=== PATIENT | female | born 1960 | race African-American/Black ===

== ENCOUNTER 2017-01-12 04:49 | Inpatient (IN) | payer BC, MEDICAID ==
[~2017-01-12] VITALS: Ht 177.8 cm; Wt 67.1 kg
[~2017-01-12 04:49] MED LIST: CODE1CAP54 PO; Nortriptyline Hcl PO; TRIA1CAP6 PO
[2017-01-12] MEDS ORDERED: SODIUM CHLORIDE 0.9% 1,000 ML IV ONE (06:59)
[2017-01-12] MEDS ORDERED: ACETAMINOPHEN 325MG TABLET PO ONE (07:15)
[2017-01-12 07:21] LABS: HEMATOCRIT. 35.6 % (36.0-48.0); HEMOGLOBIN. 11.1 g/dL (12.0-16.0); MEAN CORPUSCULAR VOLUME 79.9 fL (81.0-99.0); MEAN PLATELET VOLUME 10.3 fl (7.4-10.4); PLATELET 158 x1000/uL (130-400); RED BLOOD CELL COUNT 4.45 mill/uL (4.2-5.4); RED CELL DISTRIBUTION WIDTH 14.3 % (11.6-14.6)
[2017-01-12 07:25] LABS: PARTIAL THROMBOPLASTIN TIME 28.2 sec (23.4-31.0); PROTHROMBIN TIME 10.6 sec (9.4-11.6)
[2017-01-12 07:30] LABS: CARBON DIOXIDE 31 mEq/L (21-32); CHLORIDE 105 mEq/L (98-107)
[2017-01-12 07:33] LABS: CREATINE KINASE MB FRACTION 2.1 ng/mL (0.5-3.6); TROPONIN I < 0.02 ng/mL (0.00-0.04)
[2017-01-12] MEDS ORDERED: ASPIRIN 325MG EC TABLET PO ONE (08:00)
[2017-01-12] MEDS ORDERED: ONDANSETRON HCL 4MG/2ML VIAL IV PRN (08:45)
[2017-01-12] MEDS ORDERED: ACETAMINOPHEN 325MG TABLET PO PRN (08:45)
[2017-01-12] MEDS ORDERED: DOCUSATE SODIUM 100MG CAPSULE PO PRN (08:45)
[2017-01-12] MEDS ORDERED: CLONIDINE 0.1MG TABLET PO PRN (08:45)
[2017-01-12] MEDS: SODIUM CHLORIDE 0.45% 1,000 ML IV SCH ×2 (09:00→21:22)
[2017-01-12 09:52] LABS: PLATELET ESTIMATE NORMAL
[2017-01-12 11:10] VITALS: BP_SYST 120; BP_SYST 126; BP_SYST 130; BP_DIAS 87; BP_DIAS 90; BP_DIAS 91
[2017-01-12] MEDS ORDERED: QUET25TA PO (11:11)
[2017-01-12] MEDS ORDERED: AMLO5TAB88 PO (11:11)
[2017-01-12 12:00] VITALS: BP 116/62
[2017-01-12] MEDS ORDERED: BUTALBITAL PO PRN (12:45)
[2017-01-12] MEDS ORDERED: QUETIAPINE FUMARATE 25MG TABLET PO SCH (12:45)
[2017-01-12] MEDS ORDERED: CODEINE PO PRN (12:45)
[2017-01-12] MEDS ORDERED: CAFFEIN PO PRN (12:45)
[2017-01-12] MEDS ORDERED: ASA PO PRN (12:45)
[2017-01-12] MEDS: ENOXAPARIN 40MG/0.4ML SYR SUBCUT SCH (13:27)
[2017-01-12] MEDS: HYDROMORPHONE HCL/PF 2MG/ML CPJ IV PRN ×3 (13:28→22:24)
[2017-01-12] MEDS ORDERED: PANT40TA4 PO (13:48)
[2017-01-12] MEDS: DIPHENHYDRAMINE 25MG CAPSULE PO PRN ×2 (14:01→21:21)
[2017-01-12] MEDS: PANTOPRAZOLE 40MG DR TABLET PO SCH (14:17)
[2017-01-12 15:38] LABS: CLARITY URINE CLEAR (CLEAR); COLOR URINE YELLOW (YELLOW); GLUCOSE URINE NEGATIVE (NEGATIVE); KETONES URINE NEGATIVE (NEGATIVE); LEUKOCYTE ESTERASE URINE 2+ (NEGATIVE); NITRITE URINE NEGATIVE (NEGATIVE); OCCULT BLOOD URINE NEGATIVE (NEGATIVE); PROTEIN URINE NEGATIVE (NEGATIVE); SPECIFIC GRAVITY URINE 1.015 (1.005-1.030); UROBILINOGEN URINE 0.2 E.U./dL (0.2-1.0)
[2017-01-12 15:53] LABS: *AMPHETAMINES SCREEN URINE NEGATIVE (NEGATIVE); *BARBITURATES SCREEN URINE PRESUMTIVE POSITIVE (NEGATIVE); *BENZODIAZEPINES SCREEN URINE NEGATIVE (NEGATIVE); *COCAINE SCREEN URINE NEGATIVE (NEGATIVE); CANNABINOID URINE SCREEN NEGATIVE (NEGATIVE); METHADONE URINE SCREEN NEGATIVE (NEGATIVE); OPIATES URINE SCREEN PRESUMTIVE POSITIVE (NEGATIVE); PHENCYCLIDINE URINE SCREEN NEGATIVE (NEGATIVE)
[2017-01-12 16:00] VITALS: BP 128/96
[2017-01-12 20:00] VITALS: BP_SYST 135; BP_SYST 145; BP_SYST 148; BP_DIAS 104; BP_DIAS 94; BP_DIAS 95
[2017-01-13] VITALS (7 sets, daily range): BP systolic 100–144; BP diastolic 75–96
[2017-01-13] MEDS: HYDROMORPHONE HCL/PF 2MG/ML CPJ IV PRN ×3 (05:47→19:57)
[2017-01-13 06:11] LABS: HEMATOCRIT. 32.7 % (36.0-48.0); HEMOGLOBIN. 10.5 g/dL (12.0-16.0); MEAN CORPUSCULAR HEMOGLOBIN 25.4 pg (28.0-32.0); MEAN CORPUSCULAR VOLUME 79.3 fL (81.0-99.0); MEAN PLATELET VOLUME 9.8 fl (7.4-10.4); PLATELET 136 x1000/uL (130-400); RED BLOOD CELL COUNT 4.13 mill/uL (4.2-5.4); RED CELL DISTRIBUTION WIDTH 14.5 % (11.6-14.6)
[2017-01-13 07:29] LABS: CARBON DIOXIDE 29 mEq/L (21-32); CHLORIDE 106 mEq/L (98-107); HDL CHOLESTEROL 81 mg/dL (40-59); LDL CHOLESTEROL 85 mg/dL (5-100)
[2017-01-13] MEDS: DIPHENHYDRAMINE 25MG CAPSULE PO PRN ×3 (08:10→19:56)
[2017-01-13] MEDS: PANTOPRAZOLE 40MG DR TABLET PO SCH (08:10)
[2017-01-13] MEDS: AMLODIPINE 5MG TABLET PO SCH (08:10)
[2017-01-13] MEDS: ENOXAPARIN 40MG/0.4ML SYR SUBCUT SCH (08:11)
[2017-01-13] MEDS ORDERED: TRIAMTERENE/HYDROCHLOROTHIAZIDE 37.5/25MG CAPSULE PO SCH (09:00)
[2017-01-13] MEDS ORDERED: NORTRIPTYLINE HCL 100 MG PO SCH (09:00)
[2017-01-13 10:35] LABS: PLATELET ESTIMATE NORMAL
[2017-01-13] MEDS: SODIUM CHLORIDE 0.45% 1,000 ML IV SCH ×2 (11:27→23:33)
[2017-01-13] MEDS: NORTRIPTYLINE HCL 25MG CAPSULE PO SCH (13:42)
[2017-01-14 04:00] VITALS: BP_SYST 149; BP_SYST 150; BP_SYST 152; BP_DIAS 104; BP_DIAS 97; BP_DIAS 98
[2017-01-14] MEDS: HYDROMORPHONE HCL/PF 2MG/ML CPJ IV PRN (05:50)
[2017-01-14 07:15] LABS: BASOPHILS % 1.4 % (0.0-2.0); EOSINOPHILS % 10.4 % (0.0-5.0); HEMATOCRIT. 38.2 % (36.0-48.0); HEMOGLOBIN. 12.1 g/dL (12.0-16.0); LYMPHOCYTES % 34.9 % (20.0-50.0); MEAN CORPUSCULAR HEMOGLOBIN 25.4 pg (28.0-32.0); MEAN CORPUSCULAR VOLUME 80.1 fL (81.0-99.0); MEAN PLATELET VOLUME 9.8 fl (7.4-10.4); MONOCYTES % 14.2 % (2.0-8.0); NEUTROPHILS % 39.1 % (40.0-76.0); PLATELET 168 x1000/uL (130-400); RED BLOOD CELL COUNT 4.77 mill/uL (4.2-5.4); RED CELL DISTRIBUTION WIDTH 14.5 % (11.6-14.6)
[2017-01-14] MEDS ORDERED: FAMOTIDINE 20MG TABLET PO SCH (07:40)
[2017-01-14 08:16] LABS: CARBON DIOXIDE 32 mEq/L (21-32); CHLORIDE 101 mEq/L (98-107)
[2017-01-14 08:30] VITALS: BP_SYST 131; BP_SYST 139; BP_SYST 144; BP_DIAS 84; BP_DIAS 85; BP_DIAS 92
[2017-01-14] MEDS: ENOXAPARIN 40MG/0.4ML SYR SUBCUT SCH (09:00)
[2017-01-14] MEDS: AMLODIPINE 5MG TABLET PO SCH (09:33)
[2017-01-14] MEDS: NORTRIPTYLINE HCL 25MG CAPSULE PO SCH (09:33)
[2017-01-14 12:00] VITALS: BP 141/94
[2017-01-14 14:55] VITALS: BP 129/90
== END 2017-01-14 15:10 | disposition home or self-care (01) | DRG 74 ==
LOC: ER 06:24 → 7WST 08:46 → EDBEDREQ 08:52 → EDBEDREQTM 08:52 → ENRESERV 09:55
PROVIDERS: ADMIT Internal Medicine Nephrology; ATTEND Internal Medicine Nephrology
DX: G90.8 Other disorders of autonomic nervous system (principal); I10 Essential (primary) hypertension; N39.0 Urinary tract infection, site not specified; E86.9 Volume depletion, unspecified; D64.9 Anemia, unspecified; D50.9 Iron deficiency anemia, unspecified; G43.909 Migraine, unspecified, not intractable, without status migrainosus; D72.819 Decreased white blood cell count, unspecified; K21.9 Gastro-esophageal reflux disease without esophagitis; W18.2XXA Fall in (into) shower or empty bathtub, initial encounter; Z77.098 Contact with and (suspected) exposure to other hazardous, chiefly nonmedicinal, chemicals; Z79.899 Other long term (current) drug therapy; Z88.6 Allergy status to analgesic agent; Z91.013 Allergy to seafood; Z90.49 Acquired absence of other specified parts of digestive tract; Z91.040 Latex allergy status; Z88.0 Allergy status to penicillin; Y93.E1 Activity, personal bathing and showering; Y92.002 Bathroom of unspecified non-institutional (private) residence as the place of occurrence of the external cause; Y99.8 Other external cause status
CPT/HCPCS: 36415; 70450; 70551; 71010; 80048; 80053; 80061; 80305; 81001; 82553; 83690; 83735; 84443; 84484; 85025; 85379; 85610; 85730; 87040; 87086; 93005; 93306; 93880; 96360; 96361; 97161; 99285; J1170; J1650; J7030; Q0163

== ENCOUNTER 2017-05-02 01:15 | Emergency (ER) | payer BC, MEDICAID ==
[~2017-05-02] VITALS: Ht 177.8 cm; Wt 64.0 kg
[~2017-05-02 01:15] MED LIST changes: +AMLO5TAB88 PO; +PANT40TA4 PO; +QUET25TA PO
[2017-05-02] MEDS ORDERED: PREDNISONE 20MG TABLET PO ONE (03:15)
[2017-05-02 03:30] LABS: CLARITY URINE CLOUDY (CLEAR); COLOR URINE YELLOW (YELLOW); KETONES URINE NEGATIVE (NEGATIVE); LEUKOCYTE ESTERASE URINE 3+ (NEGATIVE); NITRITE URINE NEGATIVE (NEGATIVE); OCCULT BLOOD URINE TRACE (NEGATIVE); PROTEIN URINE NEGATIVE (NEGATIVE); SPECIFIC GRAVITY URINE 1.008 (1.005-1.030); UROBILINOGEN URINE 0.2 E.U./dL (0.2-1.0)
[2017-05-02] MEDS ORDERED: KETOROLAC 30MG/ML VIAL IV ONE (05:45)
[2017-05-02 06:04] VITALS: BP 144/96
== END 2017-05-02 06:13 | disposition home or self-care (01) ==
LOC: ER 01:15
DX: R42 Dizziness and giddiness (principal); G89.29 Other chronic pain; R10.32 Left lower quadrant pain; I10 Essential (primary) hypertension; Z90.49 Acquired absence of other specified parts of digestive tract; Z88.6 Allergy status to analgesic agent; Z91.040 Latex allergy status; Z88.0 Allergy status to penicillin; Z91.013 Allergy to seafood
CPT/HCPCS: 74176; 81001; 96374; 99285; J1885; J7512

== ENCOUNTER 2017-05-19 04:59 | Emergency (ER) | payer BC, MEDICAID ==
[~2017-05-19] VITALS: Ht 177.8 cm; Wt 65.0 kg
[2017-05-19 05:22] VITALS: BP 122/84
== END 2017-05-19 08:22 | disposition home or self-care (01) ==
LOC: ER 05:25
DX: J02.9 Acute pharyngitis, unspecified (principal); N39.0 Urinary tract infection, site not specified; G43.909 Migraine, unspecified, not intractable, without status migrainosus; I10 Essential (primary) hypertension; Z88.0 Allergy status to penicillin; Z90.49 Acquired absence of other specified parts of digestive tract; Z91.013 Allergy to seafood; Z91.040 Latex allergy status; Z88.6 Allergy status to analgesic agent
CPT/HCPCS: 99281

== ENCOUNTER 2017-11-15 14:33 | Emergency (ER) | payer BC, MEDICAID ==
[~2017-11-15] VITALS: Ht 162.6 cm; Wt 66.0 kg
[2017-11-15] MEDS ORDERED: MORPHINE SULFATE 4 MG/ML CPJ (NOT FOR IM USE) IV STA (15:41)
[2017-11-15] MEDS ORDERED: ONDANSETRON HCL 4MG/2ML VIAL IV STA (15:41)
[2017-11-15] MEDS ORDERED: SODIUM CHLORIDE 0.9% 1,000 ML IV ONE (15:41)
[2017-11-15] MEDS ORDERED: KETOROLAC 30MG/ML VIAL IV STA (15:41)
[2017-11-15 17:02] LABS: EOSINOPHILS % 6.2 % (0.0-5.0); HEMATOCRIT. 37.6 % (36.0-48.0); HEMOGLOBIN. 11.9 g/dL (12.0-16.0); LYMPHOCYTES % 40.6 % (20.0-50.0); MEAN CORPUSCULAR HEMOGLOBIN 25.7 pg (28.0-32.0); MEAN CORPUSCULAR VOLUME 81.1 fL (81.0-99.0); MEAN PLATELET VOLUME 9.1 fl (7.4-10.4); MONOCYTES % 8.9 % (2.0-8.0); NEUTROPHILS % 43.3 % (40.0-76.0); PLATELET 159 x1000/uL (130-400); RED BLOOD CELL COUNT 4.64 mill/uL (4.2-5.4); RED CELL DISTRIBUTION WIDTH 14.2 % (11.6-14.6)
[2017-11-15 17:07] LABS: CHLORIDE 100 mEq/L (98-107); PROTHROMBIN TIME 10.7 sec (9.4-11.6)
[2017-11-15 17:11] LABS: AMMONIA 42 uMol/L (<32)
[2017-11-15 17:12] LABS: ETHANOL BLOOD < 10 mg/dL
[2017-11-15 17:16] LABS: CREATINE KINASE 113 IU/L (26-192)
[2017-11-15 17:17] LABS: CARBAMAZEPINE < 0.5 ug/mL (4-12); PHENOBARBITAL < 2.1 ug/mL (15.0-40.0); VALPROIC ACID < 3.0 ug/mL (50-100)
[2017-11-15 18:49] VITALS: BP 150/99
[2017-11-15] MEDS ORDERED: SUMATRIPTAN SUCCINATE 25MG TABLET PO ONE (19:00)
[2017-11-15] MEDS ORDERED: METOCLOPRAMIDE HCL 10MG/2ML VIAL IV ONE (19:00)
== END 2017-11-15 19:07 | disposition home or self-care (01) ==
LOC: ER 14:33
DX: R51 Headache (principal); R11.0 Nausea; R68.84 Jaw pain; H53.8 Other visual disturbances
CPT/HCPCS: 36415; 70450; 80053; 80156; 80165; 80184; 80185; 82140; 82550; 84443; 84484; 85025; 85610; 93005; 96361; 96374; 96375; 99285; G0482; J1885; J2270; J2405; J2765; J7030; Z7610; 80305; 81003

== ENCOUNTER 2017-11-18 23:54 | Emergency (ER) | payer BC, MEDICAID ==
[~2017-11-18] VITALS: Ht 177.8 cm; Wt 65.0 kg
[2017-11-19] MEDS ORDERED: SODIUM CHLORIDE 0.9% 1,000 ML IV ONE (00:34)
[2017-11-19] MEDS ORDERED: MORPHINE SULFATE 4 MG/ML CPJ (NOT FOR IM USE) IV STA (00:34)
[2017-11-19] MEDS ORDERED: KETOROLAC 30MG/ML VIAL IV STA (00:34)
[2017-11-19] MEDS ORDERED: METOCLOPRAMIDE HCL 10MG/2ML VIAL IV ONE (00:45)
[2017-11-19] MEDS ORDERED: FENTANYL CITRATE/PF 50MCG/ML 2ML VIAL IV ONE (03:00)
[2017-11-19 03:25] VITALS: BP 144/95
== END 2017-11-19 03:40 | disposition home or self-care (01) ==
LOC: ER 23:54
DX: G43.909 Migraine, unspecified, not intractable, without status migrainosus (principal); G44.89 Other headache syndrome; R11.2 Nausea with vomiting, unspecified; I10 Essential (primary) hypertension; Z90.49 Acquired absence of other specified parts of digestive tract; Z88.0 Allergy status to penicillin; Z91.013 Allergy to seafood; Z88.6 Allergy status to analgesic agent; Z91.040 Latex allergy status; Z79.899 Other long term (current) drug therapy
CPT/HCPCS: 96361; 96374; 96375; 99284; J1885; J2270; J2765; J3010; J7030

== ENCOUNTER 2018-02-09 13:29 | Inpatient (IN) | payer BC, MEDICAID ==
[~2018-02-09] VITALS: Ht 177.8 cm; Wt 69.9 kg
[2018-02-09] MEDS ORDERED: SODIUM CHLORIDE 0.9% 1,000 ML IV ONE (15:39)
[2018-02-09] MEDS ORDERED: ONDANSETRON HCL 4MG/2ML INJ IV STA (15:39)
[2018-02-09] MEDS ORDERED: ACETAMINOPHEN 325MG TABLET PO ONE (15:45)
[2018-02-09 16:05] LABS: BASOPHILS % 1.1 % (0.0-2.0); EOSINOPHILS % 9.3 % (0.0-5.0); HEMATOCRIT. 35.1 % (36.0-48.0); HEMOGLOBIN. 11.2 g/dL (12.0-16.0); LYMPHOCYTES % 50.5 % (20.0-50.0); MEAN CORPUSCULAR HEMOGLOBIN 25.8 pg (28.0-32.0); MEAN CORPUSCULAR VOLUME 80.4 fL (81.0-99.0); MEAN PLATELET VOLUME 10.3 fl (7.4-10.4); MONOCYTES % 13.8 % (2.0-8.0); NEUTROPHILS % 25.3 % (40.0-76.0); PLATELET 199 x1000/uL (130-400); RED BLOOD CELL COUNT 4.36 mill/uL (4.2-5.4); RED CELL DISTRIBUTION WIDTH 14.5 % (11.6-14.6)
[2018-02-09 16:17] LABS: CHLORIDE 106 mEq/L (98-107)
[2018-02-09 16:43] LABS: PROTHROMBIN TIME 10.1 sec (9.1-11.1)
[2018-02-09] MEDS ORDERED: ONDANSETRON 4MG ODT PO ONE (16:45)
[2018-02-09 18:46] LABS: CLARITY URINE CLEAR (CLEAR); COLOR URINE YELLOW (YELLOW); KETONES URINE NEGATIVE (NEGATIVE); LEUKOCYTE ESTERASE URINE 2+ (NEGATIVE); NITRITE URINE NEGATIVE (NEGATIVE); OCCULT BLOOD URINE NEGATIVE (NEGATIVE); PH URINE 5.5 (4.5-8.0); PROTEIN URINE NEGATIVE (NEGATIVE); SPECIFIC GRAVITY URINE 1.013 (1.005-1.030); UROBILINOGEN URINE 0.2 E.U./dL (0.2-1.0)
[2018-02-09] MEDS ORDERED: ACETAMINOPHEN 325MG TABLET PO PRN ×2 (19:15→23:00)
[2018-02-09] MEDS ORDERED: NITROFURANTOIN 100MG M/M CAPSULE PO ONE (20:30)
[2018-02-09 21:00] VITALS: BP_SYST 135; BP_SYST 139; BP_DIAS 93; BP_DIAS 95
[2018-02-09] MEDS ORDERED: SODIUM CHLORIDE 0.45% 1,000 ML IV SCH (22:54)
[2018-02-09] MEDS ORDERED: LORAZEPAM 2MG/ML CPJ IV PRN (23:00)
[2018-02-09] MEDS ORDERED: HYDROCODONE/ACETAMINOPHEN 5/325MG TABLET PO PRN (23:00)
[2018-02-09] MEDS ORDERED: DOCUSATE SODIUM 100MG CAPSULE PO PRN (23:00)
[2018-02-09] MEDS ORDERED: CLONIDINE 0.1MG TABLET PO PRN (23:00)
[2018-02-09] MEDS ORDERED: GUAIFENESIN 200MG/10ML SUGAR FREE UDC PO PRN (23:00)
[2018-02-09] MEDS ORDERED: MAGNESIUM/ALUMINUM HYDROXIDE/SIMETHICONE 30ML UDC PO PRN (23:00)
[2018-02-09] MEDS ORDERED: NA PHOS,M-B/NA PHOS,DI-BA ENEMA 118ML PR PRN (23:00)
[2018-02-09] MEDS ORDERED: IPRATROPIUM/ALBUTEROL 0.5-3(2.5)MG/3ML NEB INH PRN (23:00)
[2018-02-09] MEDS ORDERED: ONDANSETRON HCL 4MG/2ML INJ IV PRN (23:00)
[2018-02-10] VITALS: BP 123/91
[2018-02-10] MEDS: ENOXAPARIN 40MG/0.4ML SYR SUBCUT SCH ×2 (00:02→21:06)
[2018-02-10] MEDS: MORPHINE SULFATE 4 MG/ML CPJ (NOT FOR IM USE) IV PRN ×4 (00:04→21:25)
[2018-02-10] MEDS: DIPHENHYDRAMINE 50MG/ML VIAL IV PRN ×4 (00:52→22:52)
[2018-02-10] MEDS ORDERED: PARO10TA74 PO (02:49)
[2018-02-10] MEDS ORDERED: FLUO15CR34 TP (02:49)
[2018-02-10 04:00] VITALS: BP 156/103
[2018-02-10 06:40] LABS: BASOPHILS % 1.6 % (0.0-2.0); EOSINOPHILS % 9.5 % (0.0-5.0); HEMATOCRIT. 33.9 % (36.0-48.0); HEMOGLOBIN. 10.9 g/dL (12.0-16.0); MEAN CORPUSCULAR HEMOGLOBIN 25.9 pg (28.0-32.0); MEAN CORPUSCULAR VOLUME 80.6 fL (81.0-99.0); MEAN PLATELET VOLUME 9.6 fl (7.4-10.4); MONOCYTES % 13.1 % (2.0-8.0); NEUTROPHILS % 23.8 % (40.0-76.0); PLATELET 194 x1000/uL (130-400); RED BLOOD CELL COUNT 4.21 mill/uL (4.2-5.4); RED CELL DISTRIBUTION WIDTH 14.6 % (11.6-14.6)
[2018-02-10 06:58] LABS: CHLORIDE 106 mEq/L (98-107)
[2018-02-10 07:33] LABS: HDL CHOLESTEROL 86 mg/dL (40-59); LDL CHOLESTEROL 92 mg/dL (5-100); T4 FREE 0.92 ng/dL (0.76-1.46)
[2018-02-10] MEDS: ASPIRIN 81MG EC TABLET PO SCH (08:15)
[2018-02-10 16:16] LABS: CREATINE KINASE MB FRACTION 1.5 ng/mL (0.5-3.6)
[2018-02-10 16:52] LABS: *AMPHETAMINES SCREEN URINE NEGATIVE (NEGATIVE); *BARBITURATES SCREEN URINE PRESUMTIVE POSITIVE (NEGATIVE); *BENZODIAZEPINES SCREEN URINE NEGATIVE (NEGATIVE)
[2018-02-10 16:55] LABS: *COCAINE SCREEN URINE NEGATIVE (NEGATIVE); CANNABINOID URINE SCREEN NEGATIVE (NEGATIVE); METHADONE URINE SCREEN NEGATIVE (NEGATIVE); OPIATES URINE SCREEN PRESUMTIVE POSITIVE (NEGATIVE); PHENCYCLIDINE URINE SCREEN NEGATIVE (NEGATIVE)
[2018-02-10] MEDS: SODIUM CHLORIDE 0.9% 1,000 ML IV SCH ×2 (16:56→22:52)
[2018-02-10 20:00] VITALS: BP_SYST 116; BP_SYST 122; BP_SYST 140; BP_DIAS 50; BP_DIAS 75; BP_DIAS 79
[2018-02-10 20:34] VITALS: BP 122/75
[2018-02-11] VITALS (9 sets, daily range): BP systolic 116–149; BP diastolic 50–100
[2018-02-11 00:17] LABS: CREATINE KINASE MB FRACTION 1.7 ng/mL (0.5-3.6)
[2018-02-11] MEDS: MORPHINE SULFATE 4 MG/ML CPJ (NOT FOR IM USE) IV PRN ×3 (05:57→14:52)
[2018-02-11 07:06] LABS: CREATINE KINASE MB FRACTION 2.4 ng/mL (0.5-3.6)
[2018-02-11] MEDS: ASPIRIN 81MG EC TABLET PO SCH (08:47)
[2018-02-11] MEDS: DIPHENHYDRAMINE 50MG/ML VIAL IV PRN ×4 (08:47→23:20)
[2018-02-11] MEDS: SODIUM CHLORIDE 0.9% 1,000 ML IV SCH (13:11)
[2018-02-11] MEDS: ENOXAPARIN 40MG/0.4ML SYR SUBCUT SCH (21:57)
[2018-02-12] VITALS: BP_SYST 145; BP_SYST 149; BP_DIAS 100; BP_DIAS 78
[2018-02-12] MEDS: SODIUM CHLORIDE 0.9% 1,000 ML IV SCH (02:34)
[2018-02-12 04:00] VITALS: BP_SYST 125; BP_SYST 147; BP_DIAS 84; BP_DIAS 91
[2018-02-12] MEDS: MORPHINE SULFATE 4 MG/ML CPJ (NOT FOR IM USE) IV PRN (04:56)
[2018-02-12 07:41] VITALS: BP 163/93
[2018-02-12 07:44] VITALS: BP 141/97
[2018-02-12 07:45] VITALS: BP 127/93
[2018-02-12] MEDS: ASPIRIN 81MG EC TABLET PO SCH (09:34)
[2018-02-12 10:21] VITALS: BP 141/97
== END 2018-02-12 11:00 | disposition home or self-care (01) | DRG 73 ==
LOC: ER 13:29 → 6WST 19:04 → EDBEDREQ 19:17 → CANRESERV 19:41 → ENRESERV 19:41
PROVIDERS: ADMIT Internal Medicine; ATTEND Internal Medicine
DX: G90.8 Other disorders of autonomic nervous system (principal); G93.41 Metabolic encephalopathy; E86.0 Dehydration; D64.9 Anemia, unspecified; I10 Essential (primary) hypertension; G43.909 Migraine, unspecified, not intractable, without status migrainosus; R00.1 Bradycardia, unspecified; Z79.899 Other long term (current) drug therapy; Z90.49 Acquired absence of other specified parts of digestive tract; Z88.0 Allergy status to penicillin; Z88.8 Allergy status to other drugs, medicaments and biological substances; Z88.6 Allergy status to analgesic agent; Z91.040 Latex allergy status; W18.39XA Other fall on same level, initial encounter; Y93.01 Activity, walking, marching and hiking; Y92.89 Other specified places as the place of occurrence of the external cause; Y99.8 Other external cause status
CPT/HCPCS: 36415; 71045; 80061; 80305; 82550; 82553; 83036; 83880; 84439; 84443; 84484; 85379; 93005; 93306; 93970; 96361; 96374; 99285; C1893; J1200; J1650; J2060; J2270; J2405; J7030; Q0162

== ENCOUNTER 2019-01-19 00:56 | Inpatient (IN) | payer BC, MEDICAID ==
[~2019-01-19] VITALS: Ht 177.8 cm; Wt 64.0 kg
[~2019-01-19 00:56] MED LIST changes: +FLUO15CR34 TP; +PARO10TA74 PO
[2019-01-19] MEDS ORDERED: SODIUM CHLORIDE 0.9% 1,000 ML IV ONE (01:44)
[2019-01-19] MEDS ORDERED: MORPHINE SULFATE 4 MG/ML CPJ (NOT FOR IM USE) IV STA (01:44)
[2019-01-19] MEDS ORDERED: ONDANSETRON HCL 4MG/2ML INJ IV STA (01:44)
[2019-01-19 02:17] LABS: BASOPHILS % 0.4 % (0.0-2.0); EOSINOPHILS % 3.1 % (0.0-5.0); HEMATOCRIT. 37.6 % (36.0-48.0); LYMPHOCYTES % 9.1 % (20.0-50.0); MEAN CORPUSCULAR HEMOGLOBIN 25.1 pg (28.0-32.0); MEAN CORPUSCULAR VOLUME 78.4 fL (81.0-99.0); MEAN PLATELET VOLUME 8.2 fl (7.4-10.4); NEUTROPHILS % 76.4 % (40.0-76.0); PLATELET 184 x1000/uL (130-400); RED BLOOD CELL COUNT 4.79 mill/uL (4.2-5.4); RED CELL DISTRIBUTION WIDTH 14.1 % (11.6-14.6)
[2019-01-19 02:20] LABS: CHLORIDE 106 mEq/L (98-107); PROTHROMBIN TIME 10.5 sec (9.6-11.0)
[2019-01-19 02:25] LABS: CLARITY URINE CLEAR (CLEAR); COLOR URINE YELLOW (YELLOW); KETONES URINE NEGATIVE (NEGATIVE); LEUKOCYTE ESTERASE URINE NEGATIVE (NEGATIVE); NITRITE URINE NEGATIVE (NEGATIVE); OCCULT BLOOD URINE NEGATIVE (NEGATIVE); PROTEIN URINE NEGATIVE (NEGATIVE); SPECIFIC GRAVITY URINE 1.025 (1.005-1.030); UROBILINOGEN URINE 0.2 E.U./dL (0.2-1.0)
[2019-01-19] MEDS ORDERED: ACETAMINOPHEN 325MG TABLET PO PRN (08:45)
[2019-01-19] MEDS ORDERED: DOCUSATE SODIUM 100MG CAPSULE PO PRN (08:45)
[2019-01-19] MEDS ORDERED: ZOLPIDEM TARTRATE 5MG TABLET PO PRN (08:45)
[2019-01-19] MEDS ORDERED: NITROGLYCERIN 0.4MG TABLET SL SL PRN (08:45)
[2019-01-19] MEDS ORDERED: GUAIFENESIN 200MG/10ML SUGAR FREE UDC PO PRN (08:45)
[2019-01-19] MEDS ORDERED: LORAZEPAM 0.5MG TABLET PO PRN (08:45)
[2019-01-19] MEDS ORDERED: IPRATROPIUM/ALBUTEROL 0.5-3(2.5)MG/3ML NEB HHN PRN (08:45)
[2019-01-19] MEDS ORDERED: NA PHOS,M-B/NA PHOS,DI-BA ENEMA 118ML PR PRN (08:45)
[2019-01-19] MEDS ORDERED: ONDANSETRON HCL 4MG/2ML INJ IV PRN (08:45)
[2019-01-19] MEDS ORDERED: MAGNESIUM/ALUMINUM HYDROXIDE/SIMETHICONE 30ML UDC PO PRN (08:45)
[2019-01-19] MEDS ORDERED: KETOROLAC 15MG/ML VIAL IV PRN (08:45)
[2019-01-19] MEDS ORDERED: CLONIDINE 0.1MG TABLET PO PRN (08:45)
[2019-01-19 09:31] VITALS: BP 121/72
[2019-01-19] MEDS: ASPIRIN 325MG EC TABLET PO SCH (10:24)
[2019-01-19] MEDS: FAMOTIDINE 20MG TABLET PO SCH ×2 (10:24→21:35)
[2019-01-19] MEDS: BUTALBITAL/ACETAMINOPHEN/CAFFEINE 50/325/40MG TABLET PO PRN ×2 (10:29→14:52)
[2019-01-19] MEDS: ENOXAPARIN 40MG/0.4ML SYR SUBCUT SCH (10:30)
[2019-01-19 12:00] VITALS: BP 127/75
[2019-01-19] MEDS ORDERED: MINERAL OIL ENEMA 133ML PR NR (12:00)
[2019-01-19] MEDS: LACTULOSE 20G/30ML UDC PO SCH ×3 (12:02→20:00)
[2019-01-19] MEDS: TRAMADOL 50MG TABLET PO PRN ×2 (12:06→21:35)
[2019-01-19 16:00] VITALS: BP 142/62
[2019-01-19 17:05] LABS: CREATINE KINASE 82 IU/L (26-192)
[2019-01-19 17:06] LABS: CREATINE KINASE MB FRACTION 1.6 ng/mL (0.5-3.6)
[2019-01-19 20:00] VITALS: BP 125/76
[2019-01-20] VITALS: BP 135/68
[2019-01-20] MEDS: LACTULOSE 20G/30ML UDC PO SCH ×4 (00:33→11:43)
[2019-01-20 01:01] LABS: CREATINE KINASE 76 IU/L (26-192)
[2019-01-20 01:03] LABS: CREATINE KINASE MB FRACTION 1.3 ng/mL (0.5-3.6)
[2019-01-20 04:00] VITALS: BP 125/85
[2019-01-20] MEDS: TRAMADOL 50MG TABLET PO PRN (05:19)
[2019-01-20 08:00] VITALS: BP 125/79
[2019-01-20] MEDS: ENOXAPARIN 40MG/0.4ML SYR SUBCUT SCH (08:34)
[2019-01-20] MEDS: BUTALBITAL/ACETAMINOPHEN/CAFFEINE 50/325/40MG TABLET PO PRN (08:36)
[2019-01-20] MEDS: FAMOTIDINE 20MG TABLET PO SCH (09:00)
[2019-01-20] MEDS: ASPIRIN 325MG EC TABLET PO SCH (09:00)
[2019-01-20 10:28] VITALS: BP 125/79
== END 2019-01-20 12:12 | disposition home or self-care (01) | DRG 390 ==
LOC: ER 00:56 → 8WST 04:59 → EDBEDREQTM 05:07 → EDBEDREQ 05:07 → ENRESERV 07:20
PROVIDERS: ADMIT Internal Medicine; ATTEND Internal Medicine
DX: K56.41 Fecal impaction (principal); R55 Syncope and collapse; G43.909 Migraine, unspecified, not intractable, without status migrainosus; E83.51 Hypocalcemia; I10 Essential (primary) hypertension; R13.10 Dysphagia, unspecified; Z90.49 Acquired absence of other specified parts of digestive tract; Z88.0 Allergy status to penicillin; Z91.040 Latex allergy status; Z91.013 Allergy to seafood; Z88.8 Allergy status to other drugs, medicaments and biological substances
CPT/HCPCS: 36415; 74176; 80061; 81003; 82550; 82553; 83036; 84484; 93005; 93306; 93970; 96374; 99285; J1650; J2270; J2405; J7030

== ENCOUNTER 2019-05-04 15:30 | Inpatient (IN) | payer BC, MEDICAID ==
[~2019-05-04] VITALS: Ht 177.8 cm; Wt 65.8 kg
[2019-05-04 20:28] LABS: BASOPHILS % 1.2 % (0.0-2.0); EOSINOPHILS % 2.3 % (0.0-5.0); HEMATOCRIT. 42.1 % (36.0-48.0); HEMOGLOBIN. 13.3 g/dL (12.0-16.0); LYMPHOCYTES % 49.1 % (20.0-50.0); MEAN CORPUSCULAR HEMOGLOBIN 24.9 pg (28.0-32.0); MEAN CORPUSCULAR VOLUME 78.9 fL (81.0-99.0); MEAN PLATELET VOLUME 9.2 fl (7.4-10.4); NEUTROPHILS % 39.4 % (40.0-76.0); PLATELET 230 x1000/uL (130-400); RED BLOOD CELL COUNT 5.34 mill/uL (4.2-5.4); RED CELL DISTRIBUTION WIDTH 14.5 % (11.6-14.6)
[2019-05-04 20:29] LABS: CHLORIDE 106 mEq/L (98-107)
[2019-05-04] MEDS ORDERED: ACETAMINOPHEN 650MG/20.3ML UDC PO ONE (21:45)
[2019-05-04] MEDS ORDERED: SODIUM CHLORIDE 0.9% 1,000 ML IV ONE (21:45)
[2019-05-04 23:03] LABS: CLARITY URINE CLEAR (CLEAR); COLOR URINE YELLOW (YELLOW); KETONES URINE NEGATIVE (NEGATIVE); LEUKOCYTE ESTERASE URINE 2+ (NEGATIVE); NITRITE URINE NEGATIVE (NEGATIVE); OCCULT BLOOD URINE NEGATIVE (NEGATIVE); PH URINE 6.5 (4.5-8.0); PROTEIN URINE NEGATIVE (NEGATIVE); SPECIFIC GRAVITY URINE 1.018 (1.005-1.030); UROBILINOGEN URINE 0.2 E.U./dL (0.2-1.0)
[2019-05-04] MEDS ORDERED: HYDROCODONE/APAP 7.5/325MG 1 TAB TABLET PO ONE (23:15)
[2019-05-04 23:17] LABS: *AMPHETAMINES SCREEN URINE NEGATIVE (NEGATIVE); *BARBITURATES SCREEN URINE PRESUMTIVE POSITIVE (NEGATIVE); *BENZODIAZEPINES SCREEN URINE NEGATIVE (NEGATIVE); *COCAINE SCREEN URINE NEGATIVE (NEGATIVE); CANNABINOID URINE SCREEN NEGATIVE (NEGATIVE); METHADONE URINE SCREEN NEGATIVE (NEGATIVE); OPIATES URINE SCREEN PRESUMTIVE POSITIVE (NEGATIVE)
[2019-05-04 23:18] LABS: PHENCYCLIDINE URINE SCREEN NEGATIVE (NEGATIVE)
[2019-05-05] MEDS ORDERED: AMLODIPINE 5MG TABLET PO ONE
[2019-05-05] MEDS ORDERED: AMITRIPTYLINE 10MG TABLET PO ONE (01:00)
[2019-05-05] MEDS ORDERED: NA PHOS,M-B/NA PHOS,DI-BA ENEMA 118ML PR PRN (01:15)
[2019-05-05] MEDS ORDERED: GUAIFENESIN 200MG/10ML SUGAR FREE UDC PO PRN (01:15)
[2019-05-05] MEDS ORDERED: DIPHENHYDRAMINE 50MG/ML VIAL IV PRN (01:15)
[2019-05-05] MEDS ORDERED: ACETAMINOPHEN 650MG SUPP PR PRN (01:15)
[2019-05-05] MEDS ORDERED: MORPHINE SULFATE 2 MG/ML CPJ (NOT FOR IM USE) IV PRN ×2 (01:15→12:15)
[2019-05-05] MEDS ORDERED: ACETAMINOPHEN 650MG/20.3ML UDC GT PRN (01:15)
[2019-05-05] MEDS ORDERED: HYDROCODONE/ACETAMINOPHEN 10/325MG TABLET PO PRN (01:15)
[2019-05-05] MEDS ORDERED: HYDROCODONE/ACETAMINOPHEN 5/325MG TABLET PO PRN (01:15)
[2019-05-05] MEDS ORDERED: DOCUSATE SODIUM 100MG CAPSULE PO PRN (01:15)
[2019-05-05] MEDS ORDERED: MAGNESIUM/ALUMINUM HYDROXIDE/SIMETHICONE 30ML UDC PO PRN (01:15)
[2019-05-05] MEDS ORDERED: CLONIDINE 0.1MG TABLET PO PRN (01:15)
[2019-05-05] MEDS ORDERED: ACETAMINOPHEN 325MG TABLET PO PRN (01:15)
[2019-05-05] MEDS ORDERED: IPRATROPIUM/ALBUTEROL 0.5-3(2.5)MG/3ML NEB HHN PRN (01:15)
[2019-05-05] MEDS ORDERED: SODIUM CHLORIDE 0.9% 1,000 ML IV SCH (02:00)
[2019-05-05] MEDS ORDERED: LEVOFLOXACIN 500MG PREMIX 100 ML IV NR (02:15)
[2019-05-05] MEDS ORDERED: METRONIDAZOLE 500 MG PREMIX 100 ML IV SCH ×2 (07:15→12:00)
[2019-05-05 10:00] VITALS: BP 148/104
[2019-05-05] MEDS ORDERED: NORT50CA PO (10:06)
[2019-05-05] MEDS ORDERED: BUTA1CAP45 MT (10:07)
[2019-05-05] MEDS: ENOXAPARIN 40MG/0.4ML SYR SUBCUT SCH (11:12)
[2019-05-05] MEDS: ONDANSETRON HCL 4MG/2ML INJ IV PRN (11:19)
[2019-05-05 12:00] VITALS: BP 139/88
[2019-05-05] MEDS ORDERED: SODIUM CHLORIDE 0.45% 1,000 ML IV SCH (12:00)
[2019-05-05] MEDS ORDERED: LEVOFLOXACIN 500MG PREMIX 100 ML IV SCH (12:00)
[2019-05-05] MEDS ORDERED: BUTALBITAL/ACETAMINOPHEN/CAFFEINE 50/325/40MG TABLET PO PRN (12:00)
[2019-05-05 12:22] LABS: BASOPHILS % 1.3 % (0.0-2.0); EOSINOPHILS % 2.1 % (0.0-5.0); HEMOGLOBIN. 12.2 g/dL (12.0-16.0); LYMPHOCYTES % 36.5 % (20.0-50.0); MEAN CORPUSCULAR HEMOGLOBIN 25.5 pg (28.0-32.0); MEAN CORPUSCULAR VOLUME 79.3 fL (81.0-99.0); MEAN PLATELET VOLUME 8.4 fl (7.4-10.4); MONOCYTES % 11.2 % (2.0-8.0); NEUTROPHILS % 48.9 % (40.0-76.0); PLATELET 209 x1000/uL (130-400); RED BLOOD CELL COUNT 4.79 mill/uL (4.2-5.4); RED CELL DISTRIBUTION WIDTH 14.2 % (11.6-14.6)
[2019-05-05 12:33] LABS: CHLORIDE 108 mEq/L (98-107)
[2019-05-05] MEDS: METRONIDAZOLE 500 MG PREMIX 100 ML IV SCH ×2 (13:24→21:07)
[2019-05-05] MEDS: SODIUM CHLORIDE 0.9% INJ 3ML FLUSH IVF SCH ×2 (13:24→22:00)
[2019-05-05 16:00] VITALS: BP 138/91
[2019-05-05 20:00] VITALS: BP 131/86
[2019-05-05] MEDS: BUTALBITAL/ACETAMINOPHEN/CAFFEINE 50/325/40MG TABLET PO PRN (21:03)
[2019-05-06] VITALS: BP 137/87
[2019-05-06] MEDS: BUTALBITAL/ACETAMINOPHEN/CAFFEINE 50/325/40MG TABLET PO PRN ×3 (01:06→12:29)
[2019-05-06] MEDS ORDERED: LEVOFLOXACIN 500MG PREMIX 100 ML IV SCH (02:00)
[2019-05-06 04:00] VITALS: BP 131/94
[2019-05-06] MEDS: ONDANSETRON HCL 4MG/2ML INJ IV PRN ×2 (04:21→10:35)
[2019-05-06] MEDS: METRONIDAZOLE 500 MG PREMIX 100 ML IV SCH ×2 (04:24→13:19)
[2019-05-06 08:00] VITALS: BP 135/94
[2019-05-06 08:03] LABS: HEMATOCRIT. 37.5 % (36.0-48.0); HEMOGLOBIN. 12.1 g/dL (12.0-16.0); MEAN CORPUSCULAR HEMOGLOBIN 25.4 pg (28.0-32.0); MEAN CORPUSCULAR VOLUME 78.7 fL (81.0-99.0); MEAN PLATELET VOLUME 8.9 fl (7.4-10.4); PLATELET 217 x1000/uL (130-400); RED BLOOD CELL COUNT 4.77 mill/uL (4.2-5.4); RED CELL DISTRIBUTION WIDTH 13.9 % (11.6-14.6)
[2019-05-06 08:11] LABS: CHLORIDE 107 mEq/L (98-107)
[2019-05-06 08:22] LABS: LDL CHOLESTEROL 120 mg/dL (5-100)
[2019-05-06 08:24] LABS: HDL CHOLESTEROL 101 mg/dL (40-59)
[2019-05-06] MEDS: ENOXAPARIN 40MG/0.4ML SYR SUBCUT SCH (09:49)
[2019-05-06 12:00] VITALS: BP 137/93
[2019-05-06] MEDS ORDERED: METR500T MT (12:31)
[2019-05-06] MEDS ORDERED: LEVO500T2 MT (12:31)
[2019-05-06 14:08] LABS: PLATELET ESTIMATE NORMAL
[2019-05-06 14:29] VITALS: BP 137/93
[2019-05-06] MEDS: SODIUM CHLORIDE 0.9% INJ 3ML FLUSH IVF SCH (14:54)
== END 2019-05-06 15:07 | disposition home or self-care (01) | DRG 392 ==
LOC: ER 15:30 → 6EST 05-05 00:08 → MERGE 05-05 00:08 → EDBEDREQSVC 05-05 07:46 → ENRESERV 05-05 08:47
PROVIDERS: ADMIT Family Medicine; ATTEND Family Medicine
DX: K52.9 Noninfective gastroenteritis and colitis, unspecified (principal); N30.90 Cystitis, unspecified without hematuria; I10 Essential (primary) hypertension; D25.9 Leiomyoma of uterus, unspecified; F41.9 Anxiety disorder, unspecified; K21.9 Gastro-esophageal reflux disease without esophagitis; G43.909 Migraine, unspecified, not intractable, without status migrainosus; Z88.0 Allergy status to penicillin; Z90.49 Acquired absence of other specified parts of digestive tract; Z87.440 Personal history of urinary (tract) infections; E78.5 Hyperlipidemia, unspecified
CPT/HCPCS: 36415; 71045; 74176; 80053; 80061; 80076; 80305; 81003; 82248; 83605; 83880; 84484; 85025; 87015; 87045; 87427; 87449; 89055; 93005; 99285; J1200; J1650; J1956; J2405; J3490; J7030

== ENCOUNTER 2022-05-05 17:30 | Emergency (ER) | payer OTHER ==
[~2022-05-05] VITALS: Ht 177.8 cm; Wt 68.0 kg
[~2022-05-05 17:30] MED LIST changes: +BUTA1CAP45 MT; -FLUO15CR34 TP; +FLUO15CR46 TP; +LEVO500T2 MT; +METR500T MT; +NORT50CA PO; -PANT40TA4 PO; +PANT40TA51 PO
[2022-05-05 22:46] VITALS: BP 156/86
[2022-05-05] MEDS: KETOROLAC 60MG/2ML VIAL IM ONE (22:46)
[2022-05-05] MEDS: METOCLOPRAMIDE HCL 10MG TABLET PO ONE (22:47)
[2022-05-05] MEDS: ACETAMINOPHEN 325MG TABLET PO ONE (22:47)
== END 2022-05-06 00:08 | disposition home or self-care (01) ==
LOC: ER 17:37
DX: R51.9 Headache, unspecified (principal); R11.0 Nausea; I10 Essential (primary) hypertension; Z90.49 Acquired absence of other specified parts of digestive tract; Z79.899 Other long term (current) drug therapy; Z88.0 Allergy status to penicillin
CPT/HCPCS: 96372; 99283; J1885; J8597

== ENCOUNTER 2022-05-08 01:28 | Emergency (ER) | payer OTHER ==
[~2022-05-08] VITALS: Ht 177.8 cm; Wt 66.0 kg
[2022-05-08] MEDS ORDERED: METOCLOPRAMIDE HCL 10MG/2ML VIAL IV ONE (04:15)
[2022-05-08] MEDS ORDERED: DIPHENHYDRAMINE 50MG/ML VIAL IV ONE (04:15)
[2022-05-08] MEDS ORDERED: SODIUM CHLORIDE 0.9% 1,000 ML IV ONE (04:15)
[2022-05-08] MEDS ORDERED: KETOROLAC 30MG/ML VIAL IV ONE (06:00)
[2022-05-08] MEDS ORDERED: LABETALOL HCL VIAL 20 MG/4 ML VIAL IV ONE (06:00)
[2022-05-08 06:01] LABS: BASOPHILS % 1.6 % (0.0-2.0); EOSINOPHILS % 2.1 % (0.0-5.0); HEMATOCRIT. 38.6 % (36.0-48.0); HEMOGLOBIN. 12.2 g/dL (12.0-16.0); LYMPHOCYTES % 32.8 % (20.0-50.0); MEAN CORPUSCULAR HEMOGLOBIN 25.1 pg (28.0-32.0); MEAN CORPUSCULAR VOLUME 79.2 fL (81.0-99.0); MEAN PLATELET VOLUME 8.9 fl (7.4-10.4); MONOCYTES % 5.4 % (2.0-8.0); NEUTROPHILS % 58.1 % (40.0-76.0); PLATELET 257 x1000/uL (130-400); RED BLOOD CELL COUNT 4.87 mill/uL (4.2-5.4); RED CELL DISTRIBUTION WIDTH 14.7 % (11.6-14.6)
[2022-05-08 06:10] LABS: CHLORIDE 105 mEq/L (98-107)
[2022-05-08] MEDS ORDERED: MORPHINE SULFATE 4 MG/ML CPJ (NOT FOR IM USE) IV SCH (09:30)
[2022-05-08] MEDS ORDERED: MAGNESIUM 2 G PREMIX 50 ML IV SCH (09:30)
[2022-05-08] MEDS ORDERED: HYDRALAZINE 20MG/ML VIAL IV SCH (09:30)
[2022-05-08] MEDS ORDERED: VALPROATE SODIUM 500 MG in SODIUM CHLORIDE 0.9% 100 ML IV SCH (13:00)
[2022-05-08 15:35] VITALS: BP 130/91
== END 2022-05-08 16:15 | disposition short-term general hospital (02) ==
LOC: ER 01:39
DX: G43.909 Migraine, unspecified, not intractable, without status migrainosus (principal); I10 Essential (primary) hypertension; Z90.49 Acquired absence of other specified parts of digestive tract; Z79.899 Other long term (current) drug therapy; Z88.0 Allergy status to penicillin
CPT/HCPCS: 36415; 70450; 80053; 85025; 93005; 96365; 96366; 96367; 96375; 99291; J0360; J1200; J1885; J2270; J2765; J3475; J3490; J7030; J7050